=== PATIENT | female | born 1975 | race Two or more races ===

== ENCOUNTER 2022-11-19 01:31 | Emergency (ER) | payer SELFPAY ==
[2022-11-19 01:34] VITALS: BP 143/76; PULSE 91; RESP 14; TEMP 37.1; O2SAT 99; BMI 32.3
[2022-11-19 01:36] VITALS: BP 143/76; PULSE 61; RESP 12; O2SAT 98
--- NOTE | 2022-11-19 01:47 | ED.CHESTPAI1 ---
HPI - Chest Pain General Chief Complaint: Chest Pain Stated Complaint: DIFFICULTY BREATHING Time Seen by Provider: 11/19/22 01:43 Source: patient and family Mode of arrival: walk-in History of Present Illness HPI narrative: patient's family is interpreting as she does not speak much [place]. Presents complaining of chest pain and dyspnea beneath her left breast. Denies similar pain in the past. No associated nausea or diaphoresis. Pain started around 8PM lat night and continues. Has history of GERD and states she ate something greasy. pain 11/01 MD complaint: Reports chest pain Related Data Allergies Allergy/AdvReac Type Severity Reaction Status Date / Time No Known Drug Allergies Allergy Verified 11/19/22 01:38 Review of Systems ROS Status of ROS 10 or more systems reviewed and unremarkable except as noted in history and below Cardiovascular Reports: chest pain Respiratory Reports: shortness of breath PFSH PFSH Social History Smoking status: Never smoker Exam Constitutional Vital Signs - 24 hr 11/19/22 01:34 11/19/22 01:36 Temperature 98.7 F Pulse Rate 61 Pulse Rate [Monitor] 91 H Respiratory Rate 14 12 Blood Pressure 143/76 H Blood Pressure [Left Arm] 143/76 H Pulse Oximetry 99 98 Common normals: no apparent distress, average body habitus, healthy appearing and well nourished HENMT Common normals: normocephalic and head/scalp atraumatic Eye Common normals: PERRL, EOMs intact bilaterally and conjunctivae normal Respiratory Common normals: normal respiratory effort, no retractions and no use of accessory muscles Cardio Common normals: no JVD, regular rate, regular rhythm, S1 normal heart sound and S2 normal heart sound GI Common normals: Normal to inspection, nondistended, normoactive bowel sounds present and soft to palpation Extremity Common normals: normal to inspection, full ROM and no joint enlargement Neuro Common normals: CN's II-XII intact bilaterally, moves all extremities and no focal motor deficits Psych Appearance: grossly normal Course Vital Signs Vital signs: Vital Signs Temperature 98.7 F 11/19/22 01:34 Pulse Rate 91 H 11/19/22 01:34 Respiratory Rate 14 11/19/22 01:34 Blood Pressure 143/76 H 11/19/22 01:34 Pulse Oximetry 99 11/19/22 01:34 Temperature 98.7 F 11/19/22 01:34 Pulse Rate 61 11/19/22 01:36 Respiratory Rate 12 11/19/22 01:36 Blood Pressure 143/76 H 11/19/22 01:36 Pulse Oximetry 98 11/19/22 01:36 MDM - Chest Pain MDM Narrative Medical decision making narrative: patient presents with continuous chest pain for several hours at 6/10. Also complains of feeling short of breath via early childhood education specialist. History of GERD. States she ate something greasy last PM. Pain beneath her left breath. Her exam is normal. she is resting comfortably in no distress with dry skin. Her first Troponin returned as not detectable. . . She was reassessed and states the pain has decreased to 4/10 but continues Her EKG is low voltage but otherwise normal. GI cocktail ordered. Pain completely resolved after GI cocktail. 2nd troponin returned as not detectable also. Patient given dose of prilosec and discharged home with working diagnosis of GERD. Advised to follow up with her doctor Lab Data Labs: Lab Results 11/19/22 11/19/22 Range/Units 01:45 04:50 WBC 9.1 (4.0-11.0) 10^3/uL RBC 4.42 (4.20-5.40) 10^6/uL Hgb 13.6 (12.0-16.0) g/dL Hct 41.1 (36.0-48.0) % MCV 93.0 (81.0-99.0) fL MCH 30.8 (26.7-34.0) pg MCHC 33.1 (29.9-35.2) g/dL RDW 13.1 (11.0-15.0) % Plt Count 261 (150-450) 10^3/uL MPV 10.7 (9.5-13.5) fL Neut % (Auto) 54.5 (43.0-75.0) % Lymph % (Auto) 38.5 (20.5-60.0) % Ransom % (Auto) 5.5 (1.7-12.0) % Eos % (Auto) 1.0 (0.9-7.0) % Baso % (Auto) 0.2 (0.2-2.0) % Neut # (Auto) 4.9 (1.4-6.5) 10^3/uL Lymph # (Auto) 3.5 (1.2-3.8) 10^3/uL Ransom # (Auto) 0.5 (0.3-0.8) 10^3/uL Eos # (Auto) 0.1 (0.0-0.7) 10^3/uL Baso # (Auto) 0.0 (0.0-0.1) 10^3/uL Abs Immat Gran (auto) 0.03 (0.00-0.03) 10^3/uL Imm/Tot Granulo (auto) 0.3 (0.0-0.5) % D-Dimer 0.41 (<=0.59) mg/L FEU Sodium 136 (136-145) mmol/L Potassium 3.3 L (3.5-5.1) mmol/L Chloride 106 (98-107) mmol/L Carbon Dioxide 21.3 (21.0-32.0) mmol/L Anion Gap 12.0 BUN 18.0 (7.0-18.0) mg/dL Creatinine 0.81 (0.55-1.02) mg/dL Est GFR ( Amer) >60 (>=60) Est GFR (Non-Af Amer) >60 (>=60) BUN/Creatinine Ratio 22.2 Glucose 106 (74-106) mg/dL Calcium 8.7 (8.5-10.1) mg/dL Total Bilirubin 0.3 (0.2-1.0) mg/dL AST 19 (15-37) U/L ALT 20 (14-59) U/L Alkaline Phosphatase 92 (46-116) U/L Troponin I High Sens <4.0 L <4.0 L (4.0-51.3) pg/mL NT-Pro-B Natriuret Pep 193.0 (<=450.0) pg/mL Total Protein 7.4 (6.4-8.2) g/dL Albumin 3.6 (3.4-5.0) g/dL Globulin 3.8 g/dL Albumin/Globulin Ratio 0.9 Lipase 93.0 (73.0-393.0) U/L Discharge Plan Discharge Chief Complaint: Chest Pain Clinical Impression: Chest pain due to GERD, Chest pain Instructions: GERD (Gastroesophageal Reflux Disease) (ED) Additional Instructions: follow up with your family doctor or with Dr Gillette in 3 days for recheck. Return if pain recurs Stand Alone Forms: Portal Instructions Referrals: Physician,Non-Staff, MD [Primary Care Provider] - 1 week
--- NOTE | 2022-11-19 01:59 | XR_ITS ---
The [address] [address] Patient Name: DEBI PLAZA MRN: [id number] date: 1975 Sex: F Assigned Patient Location: ER Current Patient Location: ED.MAIN Accession/Order Number: [id number] Exam Date: 11/19/2022 02:07 Report Date: 11/19/2022 04:10 At the request of: KATINA HOLLOWAY Procedure: XR chest 1V EXAM: XR chest 1V HISTORY: chest pain COMPARISON: Chest x-ray/. TECHNIQUE: AP portable upright view of the chest obtained. FINDINGS: The cardiomediastinal silhouette is nonenlarged. Pulmonary vascular markings are within normal limits. There is no focal airspace consolidation, sizable effusion or pneumothorax. The osseous structures are grossly intact. IMPRESSION: No acute cardiopulmonary process identified. Electronically authenticated by: NIKIA JORDAN Date: 11/19/2022 04:10
--- NOTE | 2022-11-19 01:59 | PC.NURSE ---
pt presents to ED because patient states around 8pm developed chest pain to left side of chest and then pain radiated under left breast around 11 pm. pt also c/o sob at this time. no cardiac hx. pt is namibian speaking and has daughter at bedside translating for patient.
[2022-11-19 02:27] LABS: Basophils Percent Auto 0.2 % (0.2-2.0); Eosinophils Absolute Auto 0.1 10^3/uL (0.0-0.7); Hematocrit 41.1 % (36.0-48.0); Hemoglobin 13.6 g/dL (12.0-16.0); Immature Granulocytes Abs Auto 0.03 10^3/uL (0.00-0.03); Immature Granulocytes Pct Auto 0.3 % (0.0-0.5); Lymphocytes Absolute Auto 3.5 10^3/uL (1.2-3.8); Lymphocytes Percent Auto 38.5 % (20.5-60.0); Mean Corpuscular HGB Conc 33.1 g/dL (29.9-35.2); Mean Corpuscular Hemoglobin 30.8 pg (26.7-34.0); Mean Platelet Volume 10.7 fL (9.5-13.5); Monocytes Absolute Auto 0.5 10^3/uL (0.3-0.8); Monocytes Percent Auto 5.5 % (1.7-12.0); Neutrophils Absolute Auto 4.9 10^3/uL (1.4-6.5); Neutrophils Percent Auto 54.5 % (43.0-75.0); Platelet Count 261 10^3/uL (150-450); Red Blood Count 4.42 10^6/uL (4.20-5.40); Red Cell Distribution Width 13.1 % (11.0-15.0); White Blood Count 9.1 10^3/uL (4.0-11.0)
[2022-11-19 02:41] LABS: D Dimer 0.41 mg/L FEU (<=0.59)
[2022-11-19 02:51] LABS: Alanine Aminotransferase 20 U/L (14-59); Albumin Globulin Ratio 0.9; Albumin Level 3.6 g/dL (3.4-5.0); Alkaline Phosphatase 92 U/L (46-116); Aspartate Amino Transferase 19 U/L (15-37); BUN Creatinine Ratio 22.2; Bilirubin Total 0.3 mg/dL (0.2-1.0); Calcium 8.7 mg/dL (8.5-10.1); Carbon Dioxide 21.3 mmol/L (21.0-32.0); Chloride 106 mmol/L (98-107); Estimated GFR (African America >60 (>=60); Estimated GFR (Non-African Ame >60 (>=60); Globulin 3.8 g/dL; Glucose 106 mg/dL (74-106); Potassium 3.3 mmol/L (3.5-5.1); Sodium 136 mmol/L (136-145); Total Protein 7.4 g/dL (6.4-8.2); Troponin I High Sensitivity <4.0 pg/mL (4.0-51.3)
[2022-11-19] MEDS: lidocaine HCL 15 ML, MAG HYDROX/ALUMINUM HYD/SIMETH 30 ML, HYOSCYAMINE SULFATE 0.25 MG PO (04:11)
--- NOTE | 2022-11-19 05:02 | ECG_ITS ---
[facility] Test Date: 2022-11-19 Pat Name: Tina Thompson Department: Room: - Gender: Female Data Clerk: : 1975 Requested By: Order Number: [id number] Reading MD: CRYSTAL MANTILLA Measurements Intervals [place] Rate: 80 P: 57 PA: 130 QRS: 35 QRSD: 80 T: 29 QT: 388 QTc: 424 Interpretive Statements 1100 Sinus rhythm 1102 Sinus arrhythmia 8102 Low QRS voltage in chest leads 9120 atypical ECG No previous ECG available for comparison Electronically Signed On 11-19-2022 7:06:22 EDT by CRYSTAL MANTILLA
[2022-11-19 05:22] LABS: Troponin I High Sensitivity <4.0 pg/mL (4.0-51.3)
[2022-11-19] MEDS: OMEPRAZOLE 40 MG CAPSULE.DR PO (06:23)
--- NOTE | 2022-11-19 06:34 | PC.NURSE ---
Pt Iv removed, pt removed from monitor Pt given discharge instructions and patient education printed in telugu Pt denies further needs or questions at this time Pt was given 1 omeprazole before she left, however the MAR would not let me document this
== END 2022-11-19 06:57 | disposition home or self-care (01) ==
PROVIDERS: Emergency Provider Internal Medicine
DX: R07.9 Chest pain, unspecified (principal); K21.9 Gastro-esophageal reflux disease without esophagitis; R06.02 Shortness of breath
CPT/HCPCS: 36415; 71045; 80053; 83690; 83880; 84484; 85025; 85378; 93005; 99285